=== PATIENT | male | born 1945 | race Caucasian/White ===

== ENCOUNTER 2016-05-05 08:36 | Outpatient (CLI) | payer MEDICARE | END 2016-05-05 08:37 | disposition home or self-care (01) | DX: E78.2 Mixed hyperlipidemia (principal); E88.81 Metabolic syndrome and other insulin resistance; E11.65 Type 2 diabetes mellitus with hyperglycemia; Z79.899 Other long term (current) drug therapy ==

== ENCOUNTER 2016-12-19 08:00 | Outpatient (CLI) | payer MEDICARE ==
[2016-12-19 12:59] LABS: HEMOGLOBIN A1C 0.68 g/dL
== END 2016-12-19 08:01 | disposition home or self-care (01) ==
LOC: LAB.R 08:00
PROVIDERS: ATTEND Internal Medicine
DX: E11.65 Type 2 diabetes mellitus with hyperglycemia (principal)
CPT/HCPCS: 83036

== ENCOUNTER 2017-03-23 20:17 | Emergency (ER) | payer MEDICARE ==
[2017-03-23] MEDS ORDERED: oxyCODONE 5 MG TABLET PO STA (21:21)
--- NOTE | 2017-03-23 21:29 | ED Physician Documentation ---
PD HPI BACK INJURY - Stated complaint Stated Complaint: GLF - BACK PX - History obtained from History obtained from: Patient, Family - History of Present Illness Location: Left, Lower Type of injury: Fall (off boat onto concrete, landed on buttocks, gradual onset pain) Where injury occurred: Home Timing - onset: How many hours ago (4) Timing - duration: Hours (4) Timing - details: Gradual onset Pain level max: 8 Pain level now: 8 Quality: Pain, Spasm, Aching, Similar to prior episodes Improved by: Rest, Other (took 2 tylenol with) Worsened by: Moving, Palpating Associated symptoms: No: Fever, Weakness, Numbness, Incontinent of urine, Unable to urinate, Hematuria, Incontinent of stool Contributing factors: Other (Has had spinal injections in the back before) Recently seen: Not recently seen Review of Systems Constitutional: denies: Fever, Chills Ears: denies: Ear pain Nose: denies: Rhinorrhea / runny nose, Congestion Throat: denies: Sore throat Cardiac: denies: Chest pain / pressure Respiratory: denies: Cough GI: denies: Nausea, Vomiting, Diarrhea Skin: denies: Rash Musculoskeletal: denies: Neck pain Neurologic: denies: Focal weakness, Numbness, Confused, Altered mental status, Head injury, LOC PD PAST MEDICAL HISTORY - Past Medical History Past Medical History: Yes Cardiovascular: High cholesterol Respiratory: Pneumonia Neuro: Peripheral neuropathy Endocrine/Autoimmune: Other GI: Colon polyps : None HEENT: None Psych: None, Post traumatic stress disorder Musculoskeletal: Osteoarthritis, Chronic back pain, Other Derm: Eczema - Past Surgical History Past Surgical History: Yes General: Colonoscopy Ortho: Knee replacement, Carpal Tunnel surgery, Other HEENT: Tonsil/Adenoidectomy - Present Medications Home Medications: Ambulatory Orders Medication Instructions Recorded Confirmed Atorvastatin [Lipitor] 10 mg PO DAILY 06/15/14 06/16/14 Gabapentin 400 mg PO QID PRN 06/15/14 06/16/14 Anxiety 03/23/17 Cyclobenzaprine [Flexeril] 10 mg PO TID PRN #20 tablet 03/23/17 Meloxicam [Mobic] 7.5 mg PO BID PRN #20 tablet 03/23/17 Oxycodone HCl/Acetaminophen 1 - 2 each PO Q6H PRN #14 tablet 03/23/17 [Percocet 5-325 mg Tablet] - Allergies Allergies/Adverse Reactions: Allergies Allergy/AdvReac Type Severity Reaction Status Date / Time No Known Drug Allergies Allergy Verified 03/23/17 20:30 - Social History Does the pt smoke?: No Smoking Status: Never smoker Does the pt drink ETOH?: No Does the pt have substance abuse?: No - Immunizations Immunizations are current?: Yes PD ED PE NORMAL - Vitals Vital signs reviewed: Yes - General General: Alert and oriented X 3, No acute distress, Well developed/nourished - HEENT HEENT: Atraumatic, PERRL, Moist mucous membranes - Neck Neck: Supple, no meningeal sign, No bony TTP, Other (Full range of motion without pain) - Cardiac Cardiac: RRR, Strong equal pulses - Respiratory Respiratory: No respiratory distress, Clear bilaterally - Abdomen Abdomen: Soft, Non tender, Non distended - Back Back: Other (Mild lower lumbar tenderness to palpation. There is mainly paraspinal spasm present bilateral lower lumbar. No tenderness over the sacrum or coccyx. No tenderness over the bilateral hips.) - Derm Derm: Warm and dry, No rash - Extremities Extremities: Normal ROM s pain - Neuro Neuro: Alert and oriented X 3 - Psych Psych: Normal mood, Normal affect Results - Vitals Vitals: Vital Signs - 24 hr 03/23/17 03/23/17 20:27 22:39 Temperature 36.6 C 36.7 C Heart Rate 57 L 75 Respiratory 16 18 Rate Blood Pressure 127/65 136/78 H O2 Saturation 96 97 Oxygen O2 Source Room air - Rads (name of study) Lumbar spine x-ray Radiology: Prelim report reviewed, EMP read contemporaneously, See rad report ( Negative for fracture. Fzax-aw-zmroviuv multilevel degenerative disk, endplate and facet degenerative disease. Without significant interval change. Minimal anterolisthesis associated with mild disk height loss at L3-L4. Mildly progressed since 08/21/2011. ) PD MEDICAL DECISION MAKING - ED course Complexity details: reviewed results, re-evaluated patient, considered differential (no cauda equina, no spinal epidural abscess, no fracture, no aortic dissection or evidence of aneursym rupture), d/w patient, d/w family ED course: Patient is a 71-year-old male who presents to the emergency department with traumatic low back pain. Appears to be mostly spasm related. Given pain medication including Toradol and oxycodone. Pain greatly improved. Will prescribe pain medication and muscle relaxants for home. We will have him follow-up with his doctor for further care. Patient and family counseled regarding signs and symptoms for which I believe and urgent re-evaluation would be necessary. Patient with good understanding of and agreement to plan and is comfortable going home at this time This document was made in part using voice recognition software. While efforts are made to proofread this document, sound alike and grammatical errors may occur. Departure - Departure Disposition: 01 Home, Self Care Clinical Impression: Back strain Qualifiers: Encounter type: initial encounter Qualified Code(s): S39.012A - Strain of muscle, fascia and tendon of lower back, initial encounter Condition: Good Instructions: ED Sprain Strain Lumbar Follow-Up: Rivera Garcia MD [Primary Care Provider] - Within 1 week Prescriptions: Cyclobenzaprine [Flexeril] 10 mg PO TID PRN #20 tablet PRN Reason: Spasms Meloxicam [Mobic] 7.5 mg PO BID PRN #20 tablet PRN Reason: Pain Oxycodone HCl/Acetaminophen [Percocet 5-325 mg Tablet] 1 - 2 each PO Q6H PRN # 14 tablet PRN Reason: pain Comments: Return if you worsen. This will take a few days to relax. Your x-rays are negative today. Do not drink alcohol or drive while on narcotic pain medicine. Note that many narcotic pain relievers also contain tylenol/acetaminophen. Please ensure that your total dose of acetaminophen from all sources does not exceed 3 grams (3000mg) per day. You may constipated on this medication, take a stool softener such as "Colace" twice a day while you are on it. Also recommend a glsv-xue-ilmunyc laxative such as senna or MiraLAX any day that you do not have a bowel movement. If you received narcotic pain medication in the emergency department, do not drive or operate machinery for the next 24 hours. Discharge Date/Time: 03/23/17 22:53
--- NOTE | 2017-03-23 22:01 | XRAY Preliminary Report ---
Exam: XR LUMBAR SPINE 2 VIEW IMPRESSION: 1. Negative for fracture. 2. Pprr-ue-zbjnrnts multilevel degenerative disk, endplate and facet degenerative disease. Without si gnificant interval change. 3. Minimal anterolisthesis associated with mild disk height loss at L3-L4. Mildly progressed since . [facility] SITE ID: [id number]
--- NOTE | 2017-03-23 22:01 | XRAY Report ---
EXAM: LUMBOSACRAL SPINE RADIOGRAPHY EXAM DATE: 03/23/2017 09:37 PM. CLINICAL HISTORY: Fall, back pain. COMPARISONS: 08/21/2011. TECHNIQUE: 3 views. FINDINGS: Alignment: There is minimal anterolisthesis at L2-L3. No scoliosis. Bones: There are 5 non-rib bearing lumbar type vertebral bodies. There is a rudimentary disk at S1-S2 . Vertebral bodies appear normal in height without fracture. There is moderate endplate sclerosis and spurring at L3-S1. Disks: There is mild disk height loss at L3-L4 and L4-L5. There is moderate disk height loss at L5-S1 . Facets: There is generalized facet degenerative disease. Sacroiliac Joints: Unremarkable. Soft Tissues: There are mild atherosclerotic vascular calcifications. IMPRESSION: 1. Negative for fracture. 2. Lphb-wm-awoghjte multilevel degenerative disk, endplate and facet degenerative disease. Without si gnificant interval change. 3. Minimal anterolisthesis associated with mild disk height loss at L3-L4. Mildly progressed since . [facility] Referring Provider Line: [phone] SITE ID: [id number]
[2017-03-23] MEDS ORDERED: oxyCODONE/ACET 5/325 Prepack 4 PO STA (22:15)
[2017-03-23] MEDS ORDERED: KETOROLAC 60 MG/2 ML VIAL IM STA (22:15)
[2017-03-23] MEDS ORDERED: CYCLOBENZAPRINE 10 MG TABLET PO STA (22:15)
[2017-03-23 22:40] VITALS: BP 136/78
== END 2017-03-23 22:53 | disposition home or self-care (01) ==
LOC: ED 20:17
DX: S39.012A Strain of muscle, fascia and tendon of lower back, initial encounter (principal); W17.89XA Other fall from one level to another, initial encounter; E78.00 Pure hypercholesterolemia, unspecified
CPT/HCPCS: 72100; 96372; 99283; 99284; A9270

== ENCOUNTER 2017-07-03 08:00 | Outpatient (CLI) | payer MEDICARE ==
[2017-07-03 14:33] LABS: BASOPHILS # (AUTO) 0.1 10^3/uL (0.0-0.1); EOSINOPHILS # (AUTO) 0.2 10^3/uL (0.0-0.7); EOSINOPHILS % (AUTO) 2.5 %; HGB - HEMOGLOBIN 13.2 g/dL (14.0-18.0); LYMPHOCYTES # (AUTO) 0.8 10^3/uL (1.5-3.5); LYMPHOCYTES % (AUTO) 11.6 %; MEAN CORPUSCULAR HEMOGLOBIN 30.8 pg (27.0-31.0); MEAN CORPUSCULAR HGB CONC 33.8 g/dL (32.0-36.0); MEAN CORPUSCULAR VOLUME 91.1 fL (80.0-94.0); MEAN PLATELET VOLUME 9.4 fL (7.4-11.4); MONOCYTES # (AUTO) 0.8 10^3/uL (0.0-1.0); NEUTROPHILS # (AUTO) 5.1 10^3/uL (1.5-6.6); NEUTROPHILS % (AUTO) 72.9 %; PLT - PLATELET COUNT 258 10^3/uL (130-450); RED CELL DISTRIBUTION WIDTH 13.6 % (12.0-15.0)
[2017-07-03 14:50] LABS: ALBUMIN 4.3 g/dL (3.2-5.5); ALBUMIN/GLOBULIN RATIO 1.5 (1.0-2.2); ALKALINE PHOSPHATASE 40 IU/L (42-121); ALT ALANINE AMINOTRANSFERASE 15 IU/L (10-60); AST ASPARTATE AMINOTRANSFERASE 21 IU/L (10-42); BILIRUBIN,TOTAL 0.9 mg/dL (0.2-1.0); BUN - BLOOD UREA NITROGEN 20 mg/dL (6-20); CALCIUM 8.9 mg/dL (8.5-10.3); CARBON DIOXIDE - CO2 27 mmol/L (21-32); CHLORIDE 98 mmol/L (101-111); CHOL/HDL RATIO 3.4 (<5.0); CHOLESTEROL 159 mg/dL; GFR - MDRD 73 (>89); GLUCOSE 129 mg/dL (70-100); HDL CHOLESTEROL 47 mg/dL; LDL CHOLESTEROL,CALCULATED 87 mg/dL; LDL/HDL RATIO 1.9 (<3.6); SODIUM 133 mmol/L (135-145); TOTAL PROTEIN 7.1 g/dL (6.7-8.2); VLDL CHOLESTEROL 25 mg/dL
[2017-07-03 15:12] LABS: HB2 TOTAL 14.9 g/dL; HEMOGLOBIN A1C 0.78 g/dL; HEMOGLOBIN A1C % 6.9 % (4.6-6.2)
== END 2017-07-03 08:01 | disposition home or self-care (01) ==
LOC: LAB.R 08:00
PROVIDERS: ATTEND Internal Medicine
DX: E11.42 Type 2 diabetes mellitus with diabetic polyneuropathy (principal); E78.5 Hyperlipidemia, unspecified; M19.90 Unspecified osteoarthritis, unspecified site; Z12.5 Encounter for screening for malignant neoplasm of prostate
CPT/HCPCS: 80053; 80061; 83036; 84443; 85025; G0103; 83721; 84153

== ENCOUNTER 2017-07-18 08:00 | Outpatient (CLI) | payer MEDICARE ==
[2017-07-18 14:10] LABS: MEAN RETIC VALUE 116.2; RED BLOOD COUNT 4.22 10^6/uL (4.70-6.10)
[2017-07-18 14:41] LABS: FERRITIN 97.7 ng/mL (23.9-336.2)
== END 2017-07-18 08:01 | disposition home or self-care (01) ==
LOC: LAB.R 08:00
PROVIDERS: ATTEND Internal Medicine
DX: D64.9 Anemia, unspecified (principal)
CPT/HCPCS: 82607; 82728; 83010; 85044; 86880

== ENCOUNTER 2018-01-08 08:00 | Outpatient (CLI) | payer MEDICARE ==
[2018-01-08 17:57] LABS: BASOPHILS # (AUTO) 0.1 10^3/uL (0.0-0.1); BASOPHILS % (AUTO) 1.2 %; EOSINOPHILS # (AUTO) 0.1 10^3/uL (0.0-0.7); EOSINOPHILS % (AUTO) 2.1 %; HGB - HEMOGLOBIN 13.3 g/dL (14.0-18.0); LYMPHOCYTES # (AUTO) 0.8 10^3/uL (1.5-3.5); LYMPHOCYTES % (AUTO) 13.4 %; MEAN CORPUSCULAR HGB CONC 33.2 g/dL (32.0-36.0); MEAN CORPUSCULAR VOLUME 93.6 fL (80.0-94.0); MONOCYTES # (AUTO) 0.7 10^3/uL (0.0-1.0); MONOCYTES % (AUTO) 11.7 %; NEUTROPHILS # (AUTO) 4.1 10^3/uL (1.5-6.6); NEUTROPHILS % (AUTO) 71.6 %; PLT - PLATELET COUNT 235 10^3/uL (130-450); RED BLOOD COUNT 4.28 10^6/uL (4.70-6.10); RED CELL DISTRIBUTION WIDTH 13.5 % (12.0-15.0); WHITE BLOOD COUNT 5.7 x10^3/uL (4.8-10.8)
[2018-01-08 18:22] LABS: HB2 TOTAL 14.2 g/dL; HEMOGLOBIN A1C 0.81 g/dL; HEMOGLOBIN A1C % 7.4 % (4.6-6.2)
== END 2018-01-08 23:59 ==
LOC: LAB.R 08:00
PROVIDERS: ATTEND Internal Medicine
DX: E11.65 Type 2 diabetes mellitus with hyperglycemia (principal); D64.9 Anemia, unspecified
CPT/HCPCS: 83036; 85025

== ENCOUNTER 2018-05-16 10:55 | Emergency (ER) | payer MEDICARE, OTHER ==
[2018-05-16 11:05] VITALS: BP 117/64
--- NOTE | 2018-05-16 11:42 | ED Physician Documentation ---
PD HPI OPHTHO - Stated complaint Stated Complaint: EYE PX - Chief complaint Chief Complaint: Heent - History obtained from History obtained from: Patient, Family - History of Present Illness Timing - onset: Today Timing - duration: Days (1) Timing - details: Abrupt onset Pain level max: 0 Pain level now: 0 Location: Left Quality / character: No: Itching, Burning, Aching, Throbbing, Sharp Associated symptoms: Swelling (to the conjunctiva). No: Redness, Tearing, Discharge, Matting, FB sensation, Photophobia, Double vision, Decreased vision, Loss of vision, Headache Contributing factors: Wears glasses. 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 Similar symptoms before: Has not had sx before Recently seen: Not recently seen Review of Systems Constitutional: denies: Fever Eyes: denies: Loss of vision, Decreased vision, Photophobia, Discharge, Irritation Ears: denies: Ear pain Nose: denies: Rhinorrhea / runny nose, Congestion Throat: denies: Sore throat Respiratory: denies: Cough GI: denies: Vomiting PD PAST MEDICAL HISTORY - Past Medical History Past Medical History: Yes Cardiovascular: High cholesterol Respiratory: Pneumonia Endocrine/Autoimmune: Other GI: Colon polyps : None HEENT: None Psych: None, Post traumatic stress disorder Musculoskeletal: Osteoarthritis, Chronic back pain, Other Derm: Eczema - Past Surgical History Past Surgical History: Yes General: Colonoscopy Ortho: Knee replacement, Carpal Tunnel surgery, Other HEENT: Tonsil/Adenoidectomy - Present Medications Home Medications: Ambulatory Orders Medication Instructions Recorded Confirmed Atorvastatin [Lipitor] 10 mg PO DAILY 06/15/14 06/16/14 Gabapentin 400 mg PO QID PRN 06/15/14 06/16/14 Anxiety 03/23/17 Cyclobenzaprine [Flexeril] 10 mg PO TID PRN #20 tablet 03/23/17 Meloxicam [Mobic] 7.5 mg PO BID PRN #20 tablet 03/23/17 Oxycodone HCl/Acetaminophen 1 - 2 each PO Q6H PRN #14 tablet 03/23/17 [Percocet 5-325 mg Tablet] Ketotifen Fumarate [Zaditor] 1 drops LEFTEYE Q8H PRN #1 bottle 05/16/18 - Allergies Allergies/Adverse Reactions: Allergies Allergy/AdvReac Type Severity Reaction Status Date / Time No Known Drug Allergies Allergy Verified 05/16/18 11:05 - Social History Does the pt smoke?: No Smoking Status: Never smoker Does the pt drink ETOH?: No Does the pt have substance abuse?: No - Immunizations Immunizations are current?: Yes PD ED PE NORMAL - Vitals Vital signs reviewed: Yes - General General: Alert and oriented X 3, No acute distress - HEENT HEENT: Moist mucous membranes, Other (Normal lids bilaterally. Left eye has chemosis over the lateral conjunctiva.) - Neck Neck: Supple, no meningeal sign - Derm Derm: Warm and dry - Neuro Neuro: Alert and oriented X 3 Results - Vitals Vitals: Vital Signs - 24 hr 05/16/18 11:03 Temperature 35.9 C L Heart Rate 61 Respiratory 16 Rate Blood Pressure 117/64 O2 Saturation 98 Oxygen O2 Source Room air PD MEDICAL DECISION MAKING - ED course Complexity details: considered differential, d/w patient ED course: L eye chemosis. will place on zaditor eye drops and follow up with ophthalmology. Normal vision. no FB visible. normal pupil. No injuries. Patient counseled regarding signs and symptoms for which I believe and urgent re- evaluation would be necessary. Patient with good understanding of and agreement to plan and is comfortable going home at this time This document was made in part using voice recognition software. While efforts are made to proofread this document, sound alike and grammatical errors may occur. Departure - Departure Disposition: 01 Home, Self Care Clinical Impression: Chemosis of left conjunctiva Condition: Good Follow-Up: Yaya Clements MD [Provider Admit Priv/Credential] - Prescriptions: Ketotifen Fumarate [Zaditor] 1 drops LEFTEYE Q8H PRN #1 bottle PRN Reason: itching Comments: The swelling should decrease over the next few days. The cause of the chemosis is not clear at this time, but often this is due to an allergic or traumatic condition. 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 You can also see [facility] which is across the parking lot. Discharge Date/Time: 05/16/18 11:51
== END 2018-05-16 11:51 | disposition home or self-care (01) ==
LOC: ED 10:55
DX: H11.422 Conjunctival edema, left eye (principal)
CPT/HCPCS: 99283

== ENCOUNTER 2019-01-16 08:25 | Outpatient (CLI) | payer OTHER ==
[2019-01-16 08:41] LABS: BASOPHILS # (AUTO) 0.1 10^3/uL (0.0-0.1); BASOPHILS % (AUTO) 1.1 %; EOSINOPHILS # (AUTO) 0.2 10^3/uL (0.0-0.7); EOSINOPHILS % (AUTO) 2.6 %; HGB - HEMOGLOBIN 12.8 g/dL (14.0-18.0); LYMPHOCYTES # (AUTO) 0.9 10^3/uL (1.5-3.5); LYMPHOCYTES % (AUTO) 14.1 %; MEAN CORPUSCULAR HEMOGLOBIN 31.4 pg (27.0-31.0); MEAN CORPUSCULAR HGB CONC 33.6 g/dL (32.0-36.0); MEAN CORPUSCULAR VOLUME 93.6 fL (80.0-94.0); MEAN PLATELET VOLUME 10.3 fL (7.4-11.4); MONOCYTES # (AUTO) 0.8 10^3/uL (0.0-1.0); MONOCYTES % (AUTO) 12.3 %; NEUTROPHILS # (AUTO) 4.6 10^3/uL (1.5-6.6); NEUTROPHILS % (AUTO) 69.6 %; PLT - PLATELET COUNT 242 10^3/uL (130-450); RED BLOOD COUNT 4.07 10^6/uL (4.70-6.10); RED CELL DISTRIBUTION WIDTH 12.7 % (12.0-15.0); WHITE BLOOD COUNT 6.7 x10^3/uL (4.8-10.8)
[2019-01-16 09:01] LABS: ALBUMIN 4.2 g/dL (3.2-5.5); ALBUMIN/GLOBULIN RATIO 1.3 (1.0-2.2); ALKALINE PHOSPHATASE 36 IU/L (42-121); ALT ALANINE AMINOTRANSFERASE 16 IU/L (10-60); AST ASPARTATE AMINOTRANSFERASE 22 IU/L (10-42); BILIRUBIN,TOTAL 0.6 mg/dL (0.2-1.0); BUN - BLOOD UREA NITROGEN 17 mg/dL (6-20); CALCIUM 9.2 mg/dL (8.5-10.3); CARBON DIOXIDE - CO2 28 mmol/L (21-32); CHLORIDE 98 mmol/L (101-111); CHOL/HDL RATIO 3.3 (<5.0); CHOLESTEROL 197 mg/dL; CREATININE 1.1 mg/dL (0.6-1.2); GFR - MDRD 65 (>89); GLUCOSE 172 mg/dL (70-100); HB2 TOTAL 12.9 g/dL; HDL CHOLESTEROL 59 mg/dL; HEMOGLOBIN A1C 0.86 g/dL; HEMOGLOBIN A1C % 8.3 % (4.6-6.2); LDL CHOLESTEROL,CALCULATED 108 mg/dL; LDL/HDL RATIO 1.8 (<3.6); SODIUM 135 mmol/L (135-145); TOTAL PROTEIN 7.5 g/dL (6.7-8.2); VLDL CHOLESTEROL 30 mg/dL
== END 2019-01-16 08:26 | disposition home or self-care (01) ==
LOC: LAB 08:25
PROVIDERS: ATTEND Family Medicine
DX: D64.9 Anemia, unspecified (principal); G62.9 Polyneuropathy, unspecified; E78.5 Hyperlipidemia, unspecified; N40.3 Nodular prostate with lower urinary tract symptoms; E11.65 Type 2 diabetes mellitus with hyperglycemia; E11.42 Type 2 diabetes mellitus with diabetic polyneuropathy
CPT/HCPCS: 36415; 80053; 80061; 83036; 83721; 84153; 84443; 85025

== ENCOUNTER 2019-04-16 09:53 | Outpatient (CLI) | payer OTHER ==
[2019-04-16 10:17] LABS: CALCIUM 9.2 mg/dL (8.5-10.3); CREATININE 1.2 mg/dL (0.6-1.2)
[2019-04-16 10:28] LABS: HB2 TOTAL 12.8 g/dL; HEMOGLOBIN A1C 0.66 g/dL; HEMOGLOBIN A1C % 6.9 % (4.6-6.2)
== END 2019-04-16 09:54 | disposition home or self-care (01) ==
LOC: LAB 09:53
PROVIDERS: ATTEND Family Medicine
DX: E11.65 Type 2 diabetes mellitus with hyperglycemia (principal)
CPT/HCPCS: 36415; 80048; 83036

== ENCOUNTER 2020-12-23 12:03 | Outpatient (CLI) | payer MEDICARE ==
--- NOTE | 2020-12-23 16:21 | XRAY Report ---
PROCEDURE: Foot 3 View RT INDICATIONS: RIGHT FOOT PAIN TECHNIQUE: 3 views of the foot were acquired. COMPARISON: None FINDINGS: Bones: No fractures or dislocations. No suspicious bony lesions. Joint space narrowing and periart icular osteophyte formation at the first metatarsophalangeal joint as well as the interphalangeal silvina nts of the digits. ORIF of the medial malleolus. Soft tissues: No tibiotalar joint effusion. Achilles tendon appears normal. IMPRESSION: 1. Postsurgical sequelae. 2. Osteoarthritis. 3. No acute fracture. No osseous lesion. If symptoms and/or clinical suspicion for pathology continue , further assessment with repeat plain films, or advanced imaging (e.g., CT, MRI, or bone scan) is re commended for further assessment. Reviewed by: Jillian Dang MD on 12/23/2020 4:20 PM PST Approved by: Jillian Dang MD on 12/23/2020 4:20 PM PST Station ID: [id number]
== END 2020-12-23 23:59 | disposition home or self-care (01) ==
LOC: DI.N 12:03
PROVIDERS: ATTEND Physician Assistant
DX: M19.071 Primary osteoarthritis, right ankle and foot (principal); S82.51XD Displaced fracture of medial malleolus of right tibia, subsequent encounter for closed fracture with routine healing

== ENCOUNTER 2022-04-26 07:52 | Outpatient (CLI) | payer MEDICARE, OTHER ==
[2022-04-26 11:42] LABS: BASOPHILS # (AUTO) 0.1 10^3/uL (0.0-0.1); BASOPHILS % (AUTO) 0.9 %; EOSINOPHILS # (AUTO) 0.1 10^3/uL (0.0-0.7); HCT - HEMATOCRIT 35.8 % (42.0-52.0); HGB - HEMOGLOBIN 11.5 g/dL (14.0-18.0); LYMPHOCYTES # (AUTO) 0.9 10^3/uL (1.5-3.5); LYMPHOCYTES % (AUTO) 14.6 %; MEAN CORPUSCULAR HEMOGLOBIN 30.3 pg (27.0-31.0); MEAN CORPUSCULAR HGB CONC 32.1 g/dL (32.0-36.0); MEAN CORPUSCULAR VOLUME 94.2 fL (80.0-94.0); MEAN PLATELET VOLUME 10.4 fL (7.4-11.4); MONOCYTES # (AUTO) 0.8 10^3/uL (0.0-1.0); MONOCYTES % (AUTO) 12.1 %; NEUTROPHILS # (AUTO) 4.5 10^3/uL (1.5-6.6); NEUTROPHILS % (AUTO) 70.2 %; PLT - PLATELET COUNT 331 10^3/uL (130-450); RED CELL DISTRIBUTION WIDTH 13.2 % (12.0-15.0); WHITE BLOOD COUNT 6.4 x10^3/uL (4.8-10.8)
[2022-04-26 11:51] LABS: ALBUMIN 4.3 g/dL (3.2-5.5); ALBUMIN/GLOBULIN RATIO 1.5 (1.0-2.2); ALKALINE PHOSPHATASE 34 IU/L (42-121); ALT ALANINE AMINOTRANSFERASE 11 IU/L (10-60); AST ASPARTATE AMINOTRANSFERASE 17 IU/L (10-42); BILIRUBIN,TOTAL 0.5 mg/dL (0.2-1.0); BUN - BLOOD UREA NITROGEN 21 mg/dL (6-20); CALCIUM 9.6 mg/dL (8.5-10.3); CARBON DIOXIDE - CO2 29 mmol/L (21-32); CHLORIDE 101 mmol/L (101-111); CHOLESTEROL 152 mg/dL; GFR - MDRD 72 (>89); GLUCOSE 137 mg/dL (70-100); HDL CHOLESTEROL 50 mg/dL; LDL CHOLESTEROL,CALCULATED 80 mg/dL; LDL/HDL RATIO 1.6 (<3.6); POTASSIUM 4.8 mmol/L (3.5-5.0); SODIUM 136 mmol/L (135-145); TOTAL PROTEIN 7.2 g/dL (6.7-8.2); TRIGLYCERIDES 111 mg/dL; VLDL CHOLESTEROL 22 mg/dL
[2022-04-26 11:58] LABS: THYROID STIMULATING HORMONE 2.11 uIU/mL (0.34-5.60)
[2022-04-26 12:06] LABS: ESTIMATED AVERAGE GLUCOSE 169 mg/dL (70-100); HEMOGLOBIN A1c% 7.5 % (4.27-6.07)
== END 2022-04-26 07:53 | disposition home or self-care (01) ==
LOC: LAB.N 07:52
PROVIDERS: ATTEND Family Medicine
DX: E11.8 Type 2 diabetes mellitus with unspecified complications (principal); M54.16 Radiculopathy, lumbar region; M79.671 Pain in right foot; E78.5 Hyperlipidemia, unspecified; M19.90 Unspecified osteoarthritis, unspecified site
CPT/HCPCS: 36415; 80053; 80061; 83036; 83721; 84443; 85025

== ENCOUNTER 2022-05-08 13:11 | Outpatient (CLI) | payer MEDICARE, OTHER ==
--- NOTE | 2022-05-08 15:50 | MRI Report ---
PROCEDURE: LUMBAR SPINE WO INDICATIONS: LUMBAR RADICULOPATHY TECHNIQUE: Noncontrast sagittal T1 spin echo and T2 fast echo, sagittal STIR, axial T1 and T2 fast spin echo thr ough the lumbar spine. In cases with scoliosis, additional coronal T2 fast spin echo may be performe d. COMPARISON: None. FINDINGS: Image quality: Excellent. Alignment and Curvature: There is normal bony alignment. Bone Marrow: Marrow is of normal overall signal. No acute vertebral body compression fractures. Spinal Cord: Conus medullaris terminates at the T12-L1 level. Visualized cord demonstrates normal s ignal and size. Paraspinous Soft Tissues: No paravertebral masses. T12-L1: The disc is desiccated consistent with degeneration. There is no disc bulge. The foramina and central canal are patent. L1-L2: No disc bulge. The foramina and central canal are patent. L2-L3: The disc is desiccated consistent with degeneration. There is facet hypertrophy bilaterally . The foramina have mild stenosis bilaterally. The ligamentum flavum are hypertrophic. The central ca nal has moderate stenosis. L3-L4: The disc is desiccated consistent with degeneration. The disc has a diffuse bulge with disc osteophytes. The facets are hypertrophic. The foramina have moderate stenosis bilaterally. The centra l canal is patent. L4-L5: The disc is desiccated consistent with degeneration with disc space narrowing. The disc as a diffuse bulge with disc osteophytes. The foramina have moderate stenosis bilaterally. The central ca nal is patent. L5-S1: No disc bulge. The foramina and central canal are patent. IMPRESSION: 1. For the purposes of this study, the lowest disc bearing element is designated L5-S1 which is the n umbering system which was used on the prior MRI in 2014, however the lowest element could be S1-S2. P lease confirm level prior to any intervention. 2. Degenerative disc disease at multiple levels primarily at L2-3, L3-4, and L4-5 with foraminal sten osis as detailed above. 3. Moderate central canal stenosis at L2-3. Reviewed by: Keith Moody on 05/08/2022 3:48 PM PDT Approved by: Keith Moody on 05/08/2022 3:48 PM PDT Station ID: [id number]
== END 2022-05-08 13:12 | disposition home or self-care (01) ==
LOC: DI 13:11
PROVIDERS: ATTEND Family Medicine
DX: M51.36 Other intervertebral disc degeneration, lumbar region (principal); M48.061 Spinal stenosis, lumbar region without neurogenic claudication; M47.816 Spondylosis without myelopathy or radiculopathy, lumbar region

== ENCOUNTER 2022-07-10 13:57 | Outpatient (CLI) | payer MEDICARE, OTHER ==
[2022-07-10 21:37] LABS: ESTIMATED AVERAGE GLUCOSE 160 mg/dL (70-100); HEMOGLOBIN A1c% 7.2 % (4.27-6.07)
== END 2022-07-10 13:58 | disposition home or self-care (01) ==
LOC: LAB.N 13:57
PROVIDERS: ATTEND Neurological Surgery
DX: Z01.812 Encounter for preprocedural laboratory examination (principal); E11.9 Type 2 diabetes mellitus without complications
CPT/HCPCS: 36415; 83036

== ENCOUNTER 2022-09-01 20:31 | Emergency (ER) | payer MEDICARE, OTHER ==
[2022-09-01 21:14] LABS: BASOPHILS % (AUTO) 0.4 %; EOSINOPHILS # (AUTO) 0.1 10^3/uL (0.0-0.7); EOSINOPHILS % (AUTO) 0.5 %; HCT - HEMATOCRIT 33.7 % (42.0-52.0); HGB - HEMOGLOBIN 10.8 g/dL (14.0-18.0); LYMPHOCYTES # (AUTO) 1.3 10^3/uL (1.5-3.5); LYMPHOCYTES % (AUTO) 13.3 %; MEAN CORPUSCULAR HEMOGLOBIN 29.6 pg (27.0-31.0); MEAN CORPUSCULAR VOLUME 92.3 fL (80.0-94.0); MEAN PLATELET VOLUME 9.8 fL (7.4-11.4); MONOCYTES # (AUTO) 0.9 10^3/uL (0.0-1.0); MONOCYTES % (AUTO) 9.1 %; NEUTROPHILS # (AUTO) 7.2 10^3/uL (1.5-6.6); NEUTROPHILS % (AUTO) 76.3 %; PLT - PLATELET COUNT 337 10^3/uL (130-450); RED BLOOD COUNT 3.65 10^6/uL (4.70-6.10); RED CELL DISTRIBUTION WIDTH 12.8 % (12.0-15.0); WHITE BLOOD COUNT 9.5 x10^3/uL (4.8-10.8)
[2022-09-01 21:19] LABS: VBG BASE EXCESS 2.3 mmol/L (-2 - +2); VBG HCO3 27.6 mmol/L (23-28); VBG OXYGEN SATURATION 79.3 % (60-80); VBG PCO2 45.3 mmHg (41-51); VBG PH 7.402 (7.31-7.41); VBG PO2 40.3 mmHg (25-47); VBG TOTAL CO2 28.9 mmol/L (24-29)
[2022-09-01 21:27] LABS: ALBUMIN 4.4 g/dL (3.2-5.5); ALBUMIN/GLOBULIN RATIO 1.3 (1.0-2.2); ALKALINE PHOSPHATASE 46 IU/L (42-121); ALT ALANINE AMINOTRANSFERASE 12 IU/L (10-60); AST ASPARTATE AMINOTRANSFERASE 14 IU/L (10-42); BILIRUBIN,TOTAL 0.4 mg/dL (0.2-1.0); BUN - BLOOD UREA NITROGEN 33 mg/dL (6-20); CARBON DIOXIDE - CO2 28 mmol/L (21-32); CHLORIDE 94 mmol/L (101-111); GFR - MDRD 72 (>89); GLUCOSE 305 mg/dL (70-100); MAGNESIUM 1.8 mg/dL (1.7-2.8); POTASSIUM 4.4 mmol/L (3.5-5.0); SODIUM 133 mmol/L (135-145); TOTAL PROTEIN 7.8 g/dL (6.7-8.2)
[2022-09-01 21:32] LABS: KETONES, SERUM (ACETEST) NEGATIVE (NEGATIVE)
--- NOTE | 2022-09-01 21:56 | ED Physician Documentation ---
History of Present Illness - Stated complaint Stated Complaint: HIGH BLOOD SUGAR - Chief complaint Chief Complaint: General - History obtained from History obtained from: Patient - Additonal information Additional information: HPI From patient. Patient had back surgery 4 days ago, has been taking medrol dose pack since then. His chief concern tonight is persistently high blood sugars at home (patie nt is diabetic). On the , FSBS 293, 369, : 321, 350; : 341, 290, 313. He says his blood sugars are typically not this high. He does not describe any signs/symptoms consistent with hyperglycemia (such as frequent urination, lightheadedness, visual changes, weakness, polyphagia). He was taken trulicity but was told to stop taking this for a few days, He does still take metformin 850mg PO BID. Review of Systems Constitutional: denies: Fever, Chills, Sweats Cardiac: reports: Reviewed and negative Respiratory: reports: Reviewed and negative GI: denies: Abdominal Pain, Nausea, Vomiting : denies: Dysuria, Frequency Neurologic: denies: Generalized weakness, Focal weakness, Numbness, Confused, Altered mental status, Headache PD PAST MEDICAL HISTORY - Past Medical History Cardiovascular: High cholesterol Respiratory: Pneumonia Endocrine/Autoimmune: Other GI: Colon polyps : None HEENT: None Psych: None, Post traumatic stress disorder Musculoskeletal: Osteoarthritis, Chronic back pain, Other Derm: Eczema - Past Surgical History Past Surgical History: Yes General: Colonoscopy Ortho: Knee replacement, Carpal Tunnel surgery, Other HEENT: Tonsil/Adenoidectomy - Present Medications Home Medications: Ambulatory Orders Medication Instructions Recorded Confirmed Atorvastatin [Lipitor] 10 mg PO DAILY 06/15/14 06/16/14 Gabapentin 400 mg PO QID PRN 06/15/14 06/16/14 Anxiety 03/23/17 Cyclobenzaprine [Flexeril] 10 mg PO TID PRN #20 tablet 03/23/17 Meloxicam [Mobic] 7.5 mg PO BID PRN #20 tablet 03/23/17 Oxycodone HCl/Acetaminophen 1 - 2 each PO Q6H PRN #14 tablet 03/23/17 [Percocet 5-325 mg Tablet] Ketotifen Fumarate [Zaditor] 1 drops LEFTEYE Q8H PRN #1 bottle 05/16/18 metFORMIN [Glucophage] 1,000 mg PO BIDWM 3 Days #12 tablet 09/01/22 - Allergies Allergies/Adverse Reactions: Allergies Allergy/AdvReac Type Severity Reaction Status Date / Time No Known Drug Allergies Allergy Verified 09/01/22 20:33 - Social History Does the pt smoke?: No Smoking Status: Never smoker Does the pt drink ETOH?: No Does the pt have substance abuse?: No - Immunizations Immunizations are current?: Yes PD ED PE NORMAL - Vitals Vital signs reviewed: Yes - General General: Alert and oriented X 3, No acute distress, Well developed/nourished - HEENT HEENT: Moist mucous membranes - Cardiac Cardiac: RRR, No murmur - Respiratory Respiratory: No respiratory distress, Clear bilaterally - Back Back: Other (surgical incision site is c/d/i without swelling nor erythema) Results - Vitals Vitals: Oxygen O2 Source Room air - Labs Labs: Laboratory Tests 09/01/22 09/01/22 09/01/22 20:49 21:09 21:09 WBC 9.5 RBC 3.65 L Hgb 10.8 L Hct 33.7 L MCV 92.3 MCH 29.6 MCHC 32.0 RDW 12.8 Plt Count 337 MPV 9.8 Neut # (Auto) 7.2 H Lymph # (Auto) 1.3 L Stark # (Auto) 0.9 Eos # (Auto) 0.1 Baso # (Auto) 0.0 Absolute Nucleated RBC 0.00 Nucleated RBC % 0.0 VBG pH VBG pCO2 VBG pO2 VBG HCO3 VBG Total CO2 VBG O2 Saturation VBG Base Excess Sodium 133 L Potassium 4.4 Chloride 94 L Carbon Dioxide 28 Anion Gap 11.0 BUN 33 H Creatinine 1.0 Estimated GFR (MDRD) 72 L Glucose 305 H POC Whole Bld Glucose 277 H Calcium 10.0 Magnesium 1.8 Total Bilirubin 0.4 AST 14 ALT 12 Alkaline Phosphatase 46 Total Protein 7.8 Albumin 4.4 Globulin 3.4 Albumin/Globulin Ratio 1.3 Serum Ketones NEGATIVE 09/01/22 21:09 WBC RBC Hgb Hct MCV MCH MCHC RDW Plt Count MPV Neut # (Auto) Lymph # (Auto) Stark # (Auto) Eos # (Auto) Baso # (Auto) Absolute Nucleated RBC Nucleated RBC % VBG pH 7.402 VBG pCO2 45.3 VBG pO2 40.3 VBG HCO3 27.6 VBG Total CO2 28.9 VBG O2 Saturation 79.3 VBG Base Excess 2.3 H Sodium Potassium Chloride Carbon Dioxide Anion Gap BUN Creatinine Estimated GFR (MDRD) Glucose POC Whole Bld Glucose Calcium Magnesium Total Bilirubin AST ALT Alkaline Phosphatase Total Protein Albumin Globulin Albumin/Globulin Ratio Serum Ketones PD Medical Decision Making - ED course Complexity details: considered differential, d/w patient ED course: Patient suspects, likely correctly, that his elevated blood sugars are due to the steroid. He is tapering down as prescribed over the next few days, and so I anticipate the blood sugars will concomitantly improve towards baseline. He takes 850mg metformin BID; I am prescribing him 1,000mg PO BID to be taken for the next 3 days, then he is to resume his previous dose (850mg PO BID). Tests reviewed with patient. THere are no alarming results (mild hyponatremia at 133, elevated BUN/Cr ratio (33/1.0), serum glucose 305. serum ketones negative, and normal VBG. Departure - Departure Disposition: 01 Home, Self Care Clinical Impression: High blood sugar Condition: Good Instructions: ED Hyperglycemia Diabetic Prescriptions: metFORMIN [Glucophage] 1,000 mg PO BIDWM 3 Days #12 tablet Comments: The results of judith's blood tests are reassuring in regards to your high blood sugar. Certainly, your blood sugar tonkayla is high (305), but other blood tests do not suggest that this is an immediate danger. As we discussed, the most likely explanation for the spike in her blood sugar is the steroid that you are taking. Since you have a few more days of the steroid, IM prescribing a higher dose of metformin for the next 3 days. This prescription has been electronically submitted to the [facility] pharmacy in [place]. I AM PRESCRIBING 1,000MG OF METFORMIN TO BE TAKEN TWICE PER DAY FOR THE NEXT THREE DAYS. TAKE THIS INSTEAD OF YOUR 850MG METFORMIN. ON SUNDAY (09/05/22), YOU SHOULD BE FINISHED WITH THE HIGHER DOSE OF METFORMIN AND THEN YOU CAN RESUME YOUR CURRENT DOSE OF 850MG TWICE PER DAY. Forms: PCP List Discharge Date/Time: 09/01/22 23:00
[2022-09-01] MEDS ORDERED: metFORMIN 500 MG TABLET PO STA (22:43)
[2022-09-01 22:52] VITALS: BP 126/86
== END 2022-09-01 23:00 | disposition home or self-care (01) ==
LOC: ED 20:31
DX: E11.65 Type 2 diabetes mellitus with hyperglycemia (principal); E78.00 Pure hypercholesterolemia, unspecified; Z79.84 Long term (current) use of oral hypoglycemic drugs; Z79.899 Other long term (current) drug therapy
CPT/HCPCS: 36415; 80053; 82009; 82803; 83735; 85025; 99283; 99284; A9270

== ENCOUNTER 2022-12-14 08:03 | Outpatient (CLI) | payer MEDICARE, OTHER ==
[2022-12-14 11:41] LABS: BASOPHILS # (AUTO) 0.1 10^3/uL (0.0-0.1); BASOPHILS % (AUTO) 1.2 %; EOSINOPHILS # (AUTO) 0.2 10^3/uL (0.0-0.7); EOSINOPHILS % (AUTO) 2.2 %; HCT - HEMATOCRIT 35.4 % (42.0-52.0); LYMPHOCYTES # (AUTO) 0.9 10^3/uL (1.5-3.5); LYMPHOCYTES % (AUTO) 13.5 %; MEAN CORPUSCULAR HEMOGLOBIN 29.5 pg (27.0-31.0); MEAN CORPUSCULAR HGB CONC 31.1 g/dL (32.0-36.0); MEAN CORPUSCULAR VOLUME 94.9 fL (80.0-94.0); MEAN PLATELET VOLUME 10.7 fL (7.4-11.4); MONOCYTES # (AUTO) 0.9 10^3/uL (0.0-1.0); NEUTROPHILS # (AUTO) 4.7 10^3/uL (1.5-6.6); NEUTROPHILS % (AUTO) 69.8 %; PLT - PLATELET COUNT 352 10^3/uL (130-450); RED BLOOD COUNT 3.73 10^6/uL (4.70-6.10); RED CELL DISTRIBUTION WIDTH 13.7 % (12.0-15.0); WHITE BLOOD COUNT 6.8 x10^3/uL (4.8-10.8)
[2022-12-14 11:57] LABS: ALBUMIN 4.2 g/dL (3.2-5.5); ALBUMIN/GLOBULIN RATIO 1.6 (1.0-2.2); ALKALINE PHOSPHATASE 41 IU/L (42-121); ALT ALANINE AMINOTRANSFERASE 8 IU/L (10-60); AST ASPARTATE AMINOTRANSFERASE 11 IU/L (10-42); BILIRUBIN,TOTAL 0.3 mg/dL (0.2-1.0); BUN - BLOOD UREA NITROGEN 21 mg/dL (6-20); CALCIUM 9.6 mg/dL (8.5-10.3); CARBON DIOXIDE - CO2 31 mmol/L (21-32); CHLORIDE 102 mmol/L (101-111); CHOL/HDL RATIO 2.5 (<5.0); CHOLESTEROL 132 mg/dL; CREATININE 1.1 mg/dL (0.6-1.3); GFR - MDRD 65 (>89); GLUCOSE 101 mg/dL (74-104); HDL CHOLESTEROL 52 mg/dL; LDL CHOLESTEROL,CALCULATED 64 mg/dL; LDL/HDL RATIO 1.2 (<3.6); SODIUM 138 mmol/L (135-145); TOTAL PROTEIN 6.9 g/dL (6.4-8.9); TRIGLYCERIDES 79 mg/dL (48-352); VLDL CHOLESTEROL 16 mg/dL
[2022-12-14 12:06] LABS: CREATININE,URINE 74.1 mg/dL
[2022-12-14 12:08] LABS: THYROID STIMULATING HORMONE 1.67 uIU/mL (0.34-5.60)
[2022-12-14 12:13] LABS: MICROALBUMIN,URINE < 0.7 mg/dL
[2022-12-14 14:30] LABS: ESTIMATED AVERAGE GLUCOSE 186 mg/dL (70-100); HEMOGLOBIN A1c% 8.1 % (4.27-6.07)
== END 2022-12-14 08:04 | disposition home or self-care (01) ==
LOC: LAB.N 08:03
PROVIDERS: ATTEND Family Medicine
DX: Z01.818 Encounter for other preprocedural examination (principal); E11.9 Type 2 diabetes mellitus without complications
CPT/HCPCS: 36415; 80053; 80061; 82043; 82570; 83036; 83721; 84443; 85025

== ENCOUNTER 2023-03-28 09:18 | Outpatient (CLI) | payer MEDICARE, OTHER ==
[2023-03-28 12:20] LABS: BASOPHILS # (AUTO) 0.1 10^3/uL (0.0-0.1); EOSINOPHILS # (AUTO) 0.2 10^3/uL (0.0-0.7); EOSINOPHILS % (AUTO) 2.4 %; HCT - HEMATOCRIT 34.5 % (42.0-52.0); HGB - HEMOGLOBIN 11.2 g/dL (14.0-18.0); LYMPHOCYTES # (AUTO) 0.9 10^3/uL (1.5-3.5); LYMPHOCYTES % (AUTO) 12.9 %; MEAN CORPUSCULAR HEMOGLOBIN 29.5 pg (27.0-31.0); MEAN CORPUSCULAR HGB CONC 32.5 g/dL (32.0-36.0); MEAN CORPUSCULAR VOLUME 90.8 fL (80.0-94.0); MEAN PLATELET VOLUME 10.1 fL (7.4-11.4); MONOCYTES # (AUTO) 0.7 10^3/uL (0.0-1.0); MONOCYTES % (AUTO) 10.3 %; NEUTROPHILS # (AUTO) 5.2 10^3/uL (1.5-6.6); NEUTROPHILS % (AUTO) 73.1 %; PLT - PLATELET COUNT 376 10^3/uL (130-450); RED CELL DISTRIBUTION WIDTH 13.7 % (12.0-15.0); WHITE BLOOD COUNT 7.2 x10^3/uL (4.8-10.8)
[2023-03-28 13:05] LABS: ALBUMIN 4.2 g/dL (3.2-5.5); ALBUMIN/GLOBULIN RATIO 1.4 (1.0-2.2); ALKALINE PHOSPHATASE 47 IU/L (42-121); ALT ALANINE AMINOTRANSFERASE 9 IU/L (10-60); AST ASPARTATE AMINOTRANSFERASE 15 IU/L (10-42); BILIRUBIN,TOTAL 0.4 mg/dL (0.2-1.0); BUN - BLOOD UREA NITROGEN 18 mg/dL (6-20); CALCIUM 9.9 mg/dL (8.5-10.3); CARBON DIOXIDE - CO2 31 mmol/L (21-32); CHLORIDE 94 mmol/L (101-111); CHOL/HDL RATIO 2.6 (<5.0); CHOLESTEROL 139 mg/dL; GFR - MDRD 72 (>89); GLUCOSE 77 mg/dL (74-104); HDL CHOLESTEROL 53 mg/dL; LDL CHOLESTEROL,CALCULATED 64 mg/dL; LDL/HDL RATIO 1.2 (<3.6); POTASSIUM 4.6 mmol/L (3.5-4.5); SODIUM 129 mmol/L (135-145); TOTAL PROTEIN 7.2 g/dL (6.4-8.9); TRIGLYCERIDES 108 mg/dL (48-352); VLDL CHOLESTEROL 22 mg/dL
[2023-03-28 13:18] LABS: THYROID STIMULATING HORMONE 1.21 uIU/mL (0.34-5.60)
[2023-03-28 14:57] LABS: ESTIMATED AVERAGE GLUCOSE 157 mg/dL (70-100); HEMOGLOBIN A1c% 7.1 % (4.27-6.07)
== END 2023-03-28 09:19 | disposition home or self-care (01) ==
LOC: LAB.N 09:18
PROVIDERS: ATTEND Family Medicine
DX: Z00.00 Encounter for general adult medical examination without abnormal findings (principal); E11.8 Type 2 diabetes mellitus with unspecified complications; Z13.9 Encounter for screening, unspecified; E78.5 Hyperlipidemia, unspecified; D64.9 Anemia, unspecified; Z79.4 Long term (current) use of insulin
CPT/HCPCS: 36415; 80053; 80061; 82043; 82570; 83036; 83721; 84443; 85025

== ENCOUNTER 2023-03-29 08:00 | Outpatient (CLI) | payer MEDICARE, OTHER ==
[2023-03-29 17:56] LABS: CREATININE,URINE 69.3 mg/dL; MICROALBUMIN,URINE < 0.7 mg/dL
== END 2023-03-29 23:59 | disposition home or self-care (01) ==
LOC: LAB.R 08:00
PROVIDERS: ATTEND Family Medicine
DX: Z00.00 Encounter for general adult medical examination without abnormal findings (principal); E11.8 Type 2 diabetes mellitus with unspecified complications; Z13.9 Encounter for screening, unspecified; Z79.4 Long term (current) use of insulin
CPT/HCPCS: 82043; 82570

== ENCOUNTER 2023-05-10 12:04 | Day surgery (SDC) | payer MEDICARE, OTHER ==
[~2023-05-10 12:04] MED LIST: BUPIVACAINE 0.25% PF 30 ML VIAL ONE; LIDOCAINE-MPF 1% 30 ML VIAL ONE
[2023-05-10] MEDS ORDERED: ceFAZolin 2 GM VIAL ONE (12:30)
[2023-05-10] MEDS: LACTATED RINGERS 1,000 ML IV ONE ×2 (12:59→14:54)
[2023-05-10] MEDS: DEXTROSE 50% ABBOJECT 25 GM/50 ML SYRINGE ONE (12:59)
--- NOTE | 2023-05-10 13:06 | HISTORY & PHYSICAL EXAMINATION ---
Chief Complaint - Chief Complaint Chief Complaint: right groin bulge and pain History of Present Illness - History Obtained From Records Reviewed: yes History obtained from: pt Exam Limitations: none - History of Present Illness HPI Comment/Other: right inguinal hernia, symptomatic. here for repair History - Past Medical History Cardiovascular: reports: High cholesterol Respiratory: reports: Pneumonia Endocrine/Autoimmune: reports: Type 2 diabetes GI: reports: Colon polyps : reports: None HEENT: reports: Chronic vision loss, Chronic hearing loss Psych: reports: Post traumatic stress disorder Musculoskeletal: reports: Osteoarthritis, Chronic back pain, Other Derm: reports: Eczema MRSA Hx?: No - Past Surgical History General: reports: Colonoscopy Ortho: reports: Knee replacement, Carpal Tunnel surgery, Other HEENT: reports: Tonsil/Adenoidectomy Derm: reports: Skin cancer surgery Meds/Allgy - Home Medications Home Medications: Ambulatory Orders Medication Instructions Recorded Confirmed Atorvastatin [Lipitor] 10 mg PO DAILY 06/15/14 05/03/23 Gabapentin 400 mg PO QID 06/15/14 05/03/23 Insulin Glargine [Lantus Solostar] 5 unit SUBQ QPM 05/03/23 05/10/23 Sertraline [Zoloft] 50 mg PO DAILY 05/03/23 05/03/23 buPROPion HCL [Bupropion HCl] 100 mg PO BID 05/03/23 05/03/23 metFORMIN [Glucophage] 850 mg PO BIDWM 05/03/23 05/03/23 - Allergies Allergies/Adverse Reactions: Allergies Allergy/AdvReac Type Severity Reaction Status Date / Time No Known Drug Allergies Allergy Verified 09/01/22 20:33 Review of Systems - Other Findings Other Findings: 10 pt ros as above otherwise unremarkable Exam - Vital Signs Vital Signs: Vital Signs x48h Temp Pulse Resp BP Pulse Ox 05/10/23 12:48 36.4 C L 64 18 164/87 H 98 - Physical Exam General Appearance: positive: No acute distress, Alert Eyes Bilateral: positive: PERRL, EOMI Neck: positive: No JVD, Trachea midline Respiratory: positive: No respiratory distress Cardiovascular: positive: Regular rate & rhythm Abdomen: positive: Other (right inguinal hernia present) Neurologic/Psychiatric: positive: Oriented x3 Conclusion/Plan - Problem List (1) Inguinal hernia Conclusion/Plan: plan open rih repair with mesh. parq held and consent obtained
[2023-05-10] MEDS ORDERED: LIDOCAINE-PF 2% 10 ML AMP SUBQ ONE (13:09)
[2023-05-10] MEDS ORDERED: fentaNYL 100 MCG/2 ML VIAL ONE (13:09)
[2023-05-10] MEDS ORDERED: PROPOFOL 500 MG/50 ML 500 MG/50 ML VIAL ONE (13:09)
[2023-05-10] MEDS: BUPIVACAINE 0.25% PF 30 ML VIAL SUBQ ONE (13:48)
[2023-05-10] MEDS: LIDOCAINE-MPF 1% 30 ML VIAL SUBQ ONE (13:49)
--- NOTE | 2023-05-10 15:04 | OPERATIVE REPORT ---
Operative Report - General Procedure Date: 05/10/23 Planned Procedure: open right inguinal hernia with mesh Pre-Op Diagnosis: right inguinal hernia Procedure Performed: open right inguinal hernia repair with mesh Post Op Diagnosis: direct inguinal hernia - Procedure Note Primary Surgeon: laquita hilliard Anesthesia Technique: Local, MAC Pathology: none Estimated Blood Loss (mL): 2 Drain/Tube Type: Other (none) Indications: painful hernia bulge Findings: direct inguinal hernia very fatty spermatic cord Complications: none - Other Other Information/Narrative: Patient was properly identified brought to the operating room and placed in supine position. Sequential compression devices were placed. Laryngeal mask anesthesia was induced. He was prepped and draped in a sterile fashion and given preoperative antibiotics. Local anesthetic was given throughout the procedure. A 5 cm incision was made in the direction of Marylu's lines just cephalad of the pubic tubercle. Dissection proceeded with cutting current cautery. The superficial epigastric vein was identified clamped divided and tied with 3-0 Vicryl. Dissection proceeded down to the aponeurosis. The aponeurosis was opened in the direction of its fibers and extended to the external ring. Cord structures were mobilized and brought up. The nerves were carefully protected and preserved. Cord structures were mobilized and brought up. A direct inguinal hernia was present. The hernia defect was reduced and closed with 2 O silk purse string. He had a very fatty permatic cord without preperitoneal fat or indirect hernia. Polypropylene mesh was cut to size and with tails. The mesh was secured with multiple interrupted 0 Ethibond sutures. Sutures were placed along the pubic tubercle, Jn's ligament area and along the shelving border of Poupart's ligament. Sutures were placed medially along the abdominal wall musculature and internal oblique. The medial tail of the mesh was secured to the shelving border of Poupart's ligament with 3 interrupted 0 ethibond sutures recreating the internal ring of appropriate size. Aponeurosis was closed with a running 2-0 Vicryl suture. Scarpas fascia was closed with interrupted 3-0 Vicryl suture. Buried interrupted subdermal 3-0 Vicryl sutures were then placed. Skin was closed with a running 4-0 Monocryl subcuticular suture. Dressing was applied. Patient was awakened and brought to recovery in good condition.
[2023-05-10] MEDS ORDERED: oxyCODONE 5 MG TABLET ONE (15:12)
[2023-05-10] MEDS: oxyCODONE 5 MG TABLET PO PRN (15:14)
[2023-05-10 15:25] VITALS: BP 147/80; O2SAT 98
--- NOTE | 2023-05-10 15:59 | ANESTHESIA POST OP EVALUATION ---
Anesthesia Post Eval - Post Anesthesia Eval Vitals: Last Vital Signs Temp 36.4 C L 05/10/23 15:20 Pulse 50 L 05/10/23 15:20 Resp 16 05/10/23 15:20 BP 147/80 H 05/10/23 15:20 Pulse Ox 98 05/10/23 15:20 O2 Flow Rate CV Function Including HR & BP: Stable Pain Control: Satisfactory Nausea & Vomiting: Negative Mental Status: Baseline Respiratory Status: Airway Patent Hydration Status: Satisfactory Anesthesia Complications: None
--- NOTE | 2023-05-12 16:37 | ANESTHESIA ---
Pre-Anesthesia VS, & Labs - Diagnosis R inguinal hernia - Procedure R inguinal hernia repair Vital Signs: Temp Pulse Resp BP Pulse Ox O2 Flow Rate 36.4 C L 50 L 16 147/80 H 98 05/10/23 15:20 05/10/23 15:20 05/10/23 15:20 05/10/23 15:20 05/10/23 15:20 Height: 6 ft Weight (kg): 83.3 kg Body Mass Index: 24.9 BMI Classification: Normal - NPO >8 hours - Lab Results Current Lab Results: Laboratory Tests 05/10/23 14:57: POC Whole Bld Glucose 77 05/10/23 14:28: POC Whole Bld Glucose 62 L 05/10/23 13:15: POC Whole Bld Glucose 81 05/10/23 12:47: POC Whole Bld Glucose 59 L* Home Medications and Allergies Home Medications: Ambulatory Orders Insulin Glargine [Lantus Solostar] 5 unit SUBQ QPM 05/03/23 Sertraline [Zoloft] 50 mg PO DAILY 05/03/23 buPROPion HCL [Bupropion HCl] 100 mg PO BID 05/03/23 metFORMIN [Glucophage] 850 mg PO BIDWM 05/03/23 Atorvastatin [Lipitor] 10 mg PO DAILY 06/15/14 Gabapentin 400 mg PO QID 06/15/14 Insulin Glargine [Lantus Solostar] 5 unit SUBQ QPM 05/03/23 Sertraline [Zoloft] 50 mg PO DAILY 05/03/23 buPROPion HCL [Bupropion HCl] 100 mg PO BID 05/03/23 metFORMIN [Glucophage] 850 mg PO BIDWM 05/03/23 Allergies/Adverse Reactions: Allergies Allergy/AdvReac Type Severity Reaction Status Date / Time No Known Drug Allergies Allergy Verified 09/01/22 20:33 Anes History & Medical History - Anesthetic History Anesthesia Complications: reports: No previous complications Family history of Anesthesia Complications: Denies Family history of Malignant Hyperthermia: Denies - Medical History Cardiovascular: reports: High cholesterol Pulmonary: reports: Pneumonia Gastrointestinal: reports: Colon polyps Urinary: reports: None Musculoskeletal: reports: Osteoarthritis, Chronic back pain, Other Endocrine/Autoimmune: reports: Type 2 diabetes Skin: reports: Eczema Smoking Status: Never smoker Psychosocial: reports: No issues indicated History of Cancer?: No - Surgical History General: reports: Colonoscopy Eyes Ears Nose Throat (EENT): reports: Tonsil/Adenoidectomy Orthopedic: reports: Knee replacement, Carpal Tunnel surgery, Other Dermatologic: reports: Skin cancer surgery Exam General: Alert, Oriented x3, Cooperative Dental: WNL Mouth Openin Fingerbreadth Neck Mobility: Normal Mallampati classification: I Thyromental Distance: 4-6 cm Respiratory: Lungs clear Cardiovascular: Regular rate Plan Anesthesia Type: General, Total IV Consent for Procedure(s) Verified and Reviewed: Yes Code Status: Attempt Resuscitation ASA classification: 2-Mild systemic disease Is this case an emergency?: No
== END 2023-05-10 12:05 | disposition home or self-care (01) ==
LOC: SDS 12:04
PROVIDERS: ATTEND Surgery
DX: K40.90 Unilateral inguinal hernia, without obstruction or gangrene, not specified as recurrent (principal); E11.9 Type 2 diabetes mellitus without complications; Z79.4 Long term (current) use of insulin; Z79.84 Long term (current) use of oral hypoglycemic drugs
CPT/HCPCS: 49505; A9270; C1781; J7120